=== PATIENT | male | born 1975 | race Two or more races ===

== ENCOUNTER 2020-11-15 01:55 | Emergency (ER) | payer SELFPAY ==
[~2020-11-15] VITALS: Ht 179.1 cm; Wt 84.0 kg
[2020-11-15] MEDS ORDERED: ONDANSETRON PF 4 MG/2 ML VIAL. IVP ONE (03:45)
--- NOTE | 2020-11-15 03:47 | PHYS DOC ---
General Adult EDM: Chief Complaint: FLANK PAIN HPI: HPI: Patient is a 44 year old male with a PMH of kidney stones presents for evaluation of left flank pain. He states that around 7 pm yesterday evening he gradually noticed pain in his left flank that radiates to his left back and left groin. He describes this pain as sharp and constant. He states nothing has made it better, he has tried his hydrocodone given to him from his last kidney stone and this did not help. He does not think anything is making it worse. He states he is having nausea and vomiting. He denies fevers, chills, shortness of breath, chest pain, pain with urination, increase frequency of urination, or diarrhea. Review of Systems: Review of Systems: Constitutional: Denies fever or chills. [] Eyes: Denies change in visual acuity. [] HENT: Denies nasal congestion or sore throat. [] Respiratory: Denies cough or shortness of breath. [] Cardiovascular: Denies chest pain or edema. [] GI: Denies abdominal pain, , bloody stools or diarrhea. [positive nausea, vom iting] : Denies dysuria. [] Musculoskeletal: positive flank pain Integument: Denies rash. [] Neurologic: Denies headache, focal weakness or sensory changes. [] Endocrine: Denies polyuria or polydipsia. [] Lymphatic: Denies swollen glands. [] Psychiatric: Denies depression or anxiety. [] Heart Score: Risk Factors: Risk Factors: DM, Current or recent (<one month) smoker, HTN, HLP, family history of CAD, obesity. Risk Scores: Score 0 - 3: 2.5% MACE over next 6 weeks - Discharge Home Score 4 - 6: 20.3% MACE over next 6 weeks - Admit for Clinical Observation Score 7 - 10: 72.7% MACE over next 6 weeks - Early Invasive Strategies Physical Exam: PE: Constitutional: Well developed, well nourished, no acute distress, non-toxic appearance. [] HENT: Normocephalic, atraumatic, bilateral external ears normal, oropharynx moist, no oral exudates, nose normal. [] Eyes: PERRLA, EOMI, conjunctiva normal, no discharge. [] Neck: Normal range of motion, no tenderness, supple, no stridor. [] Cardiovascular:Heart rate regular rhythm, no murmur [] Lungs & Thorax: Bilateral breath sounds clear to auscultation [] Abdomen: Bowel sounds normal, soft, no tenderness, no masses, no pulsatile masses. [] Skin: Warm, dry, no erythema, no rash. [] Back: No tenderness, no CVA tenderness. [] Extremities: No tenderness, no cyanosis, no clubbing, ROM intact, no edema. [] Neurologic: Alert and oriented X 3, normal motor function, normal sensory function, no focal deficits noted. [] Psychologic: Affect normal, judgement normal, mood normal. [] EKG: EKG: [] Radiology/Procedures: Radiology/Procedures: [] Impression: Impression: 1. Moderate hydroureteronephrosis on the left and findings of obstructive uropathy in the setting of a 9 mm stone within the mid ureter. 2. Groundglass haziness at the left lower lung is favored on account of volume loss given asymmetric elevation of the left hemidiaphragm but an atypical/viral infectious process could appear similar. Recommend correlation with patient history and symptoms. 3. Additional chronic findings detailed in the body the report to include colonic diverticulosis and mild prostatomegaly. Electronically signed by: MARTIN FERNANDEZ MD (11/15/2020 4:45 AM) [facility] Course & Med Decision Making: Course & Med Decision Making Pertinent Labs and Imaging studies reviewed. (See chart for details) [] Patient was evaluated for chief complaint. Work-up consisted of laboratory analysis and radiologic imaging. Results reviewed and discussed with patient. Treatment included morphine IV fluids Zofran and Flomax. CT imaging shows 9 mm stone mid ureter. Patient's pain completely resolved. Patient was informed of the 9 mm stone mid ureter with the possibility of difficulty of passing. Patient treated with Flomax in the ER. Discharged home with prescription for Flomax and [place]. Patient advised to return to the ER if symptoms persist get worse or any new concerning symptoms arise. Patient was given follow-up information to urology--- Dr. Kwame Farias - [facility]. Saleem Disclaimer: Saleem Disclaimer: This electronic medical record was generated, in whole or in part, using a voice recognition dictation system. Departure Departure Impression: Primary Impression: Kidney stone Disposition: 01 DC HOME SELF CARE/HOMELESS Condition: STABLE Referrals: NO PCP (PCP) Patient Instructions: Kidney Stones Scripts Hydrocodone Bit/Acetaminophen (HYDROCODONE-APAP 5-325 ) 1 Tab Tablet 1 TAB PO PRN Q6HRS PRN for PAIN, #20 TAB 0 Refills Prov: MARBIN FRANK DO 11/15/20 Tamsulosin Hcl (FLOMAX) 0.4 Mg Cap.er.24h 0.4 MG PO DAILY, #20 TAB Prov: MARBIN FRANK DO 11/15/20 MARBIN FRANK DO Nov 15, 2020 03:47
[2020-11-15 03:54] LABS: BILIRUBIN,URINE NEGATIVE (NEG); CLARITY,URINE CLEAR; COLOR,URINE YELLOW; NITRITE,URINE NEGATIVE (NEG); PROTEIN,URINE NEGATIVE (NEG-TRACE); UROBILINOGEN,URINE 0.2 mg/dL (0.2 mg/dL)
[2020-11-15 04:02] LABS: BASO % 0 % (0-3); EOS % 0 % (0-3); HEMATOCRIT 46.1 % (39.0-53.0); HEMOGLOBIN 15.7 g/dL (13.0-17.5); LYMPH # 0.7 x10^3/uL (1.0-4.8); LYMPH % 6 % (24-48); MEAN CORPUSCULAR HEMOGLOBIN 30 pg (25-35); MEAN CORPUSCULAR HGB CONC 34 g/dL (31-37); MEAN CORPUSCULAR VOLUME 87 fL (79-100); MONO # 0.6 x10^3/uL (0.0-1.1); MONO % 5 % (0-9); NEUT # 11.3 x10^3/uL (1.8-7.7); NEUT % 89 % (31-73); PLATELET COUNT 197 x10^3/uL (140-400); RED BLOOD COUNT 5.27 x10^6/uL (4.30-5.70); RED CELL DISTRIBUTION WIDTH 13.8 % (11.5-14.5); WHITE BLOOD COUNT 12.7 x10^3/uL (4.0-11.0)
[2020-11-15 04:08] LABS: BACTERIA,URINE 0 /HPF (0-FEW); RBC,URINE 20-40 /HPF (0-2); WBC,URINE RARE /HPF (0-4)
[2020-11-15 04:28] LABS: CALCIUM 8.4 mg/dL (8.5-10.1); CREATININE 1.2 mg/dL (0.7-1.3); GFR 66.1; POTASSIUM 4.4 mmol/L (3.5-5.1)
[2020-11-15] MEDS ORDERED: MORPHINE SULFATE 4 MG/ML VIAL. IV ONE (04:30)
[2020-11-15 04:34] LABS: ALBUMIN 3.8 g/dL (3.4-5.0); ALBUMIN/GLOBULIN RATIO 1.1 (1.0-1.7); TOTAL BILIRUBIN 0.6 mg/dL (0.2-1.0); TOTAL PROTEIN 7.4 g/dL (6.4-8.2)
[2020-11-15 04:41] LABS: % LYMPHS 9 % (24-48); % MONOS 2 % (0-10); % SEGS 89 % (35-66); PLT ESTIMATE ADEQUATE (ADEQUATE)
--- NOTE | 2020-11-15 04:47 | RAD ---
Study: CT abdomen/pelvis without intravenous contrast Indication: Flank pain. Comparison: None. Technique: Helical CT imaging performed of the abdomen and pelvis without the use of intravenous cont rast. Sagittal and coronal reformats were obtained. One or more of the following individualized dose reduction techniques were utilized for this examinat ion: 1. Automated exposure control 2. Adjustment of the mA and/or kV according to patient size 3. Use of iterative reconstruction technique. Findings: Inherently limited evaluation without intravenous contrast. Moderate hydroureteronephrosis and findings of obstructive uropathy on the left in the setting of a 9 mm stone located within the mid ureter, image 141 series 2. No stone or collecting system dilatation on the right. Within normal limits partially decompressed urinary bladder. Upper limits of normal pr ostate size measuring 5 cm transverse. A few colonic diverticuli without diverticulitis. Normal appendix. Nonobstructed small bowel. Within normal limits stomach. No apparent focal hepatic parenchymal abnormality. Within normal limits gallbl adder, biliary tree, pancreas, spleen and adrenal glands. Nonaneurysmal aorta. No lymphadenopathy by size criteria. No free fluid or pneumoperitoneum. No acute abnormality of the body wall soft tissues. No acute or aggressive osseous abnormality. Scattered Loraine morl's nodes. Intradiscal mineralization at T11-T12. Groundglass haziness at the left lower lung. Asymmetric elevation of the left hemidiaphragm. Mild rig ht lower lung atelectasis.The mediastinum is slightly deviated to the right due to the elevated left hemidiaphragm. Impression: 1. Moderate hydroureteronephrosis on the left and findings of obstructive uropathy in the setting of a 9 mm stone within the mid ureter. 2. Groundglass haziness at the left lower lung is favored on account of volume loss given asymmetric elevation of the left hemidiaphragm but an atypical/viral infectious process could appear similar. R ecommend correlation with patient history and symptoms. 3. Additional chronic findings detailed in the body the report to include colonic diverticulosis and mild prostatomegaly. Electronically signed by: MARTIN FERNANDEZ MD (11/15/2020 4:45 AM) [facility]
[2020-11-15] MEDS ORDERED: TAMS0.4C97 PO (05:10)
[2020-11-15] MEDS ORDERED: HYDR-2761 PO (05:13)
[2020-11-15] MEDS ORDERED: TAMSULOSIN 0.4 MG CAP.ER.24H. PO ONE (05:15)
[2020-11-15 05:35] VITALS: BP 146/94
== END 2020-11-15 05:49 | disposition home or self-care (01) ==
LOC: ER 01:55
DX: N13.2 Hydronephrosis with renal and ureteral calculous obstruction (principal); R10.9 Unspecified abdominal pain; Z87.442 Personal history of urinary calculi
CPT/HCPCS: 36415; 74176; 80053; 81001; 85007; 85025; 96374; 96375; 99285; J2270; J2405